=== PATIENT | male | born 1950 | race Hispanic/Latino ===

== ENCOUNTER 2022-09-01 01:47 | Inpatient (IN) | payer BC, MEDICARE ==
[2022-09-01] MEDS ORDERED: Nitroglycerin 2% Ointment 1 INCH/1 GM Packet ONE (03:04)
[2022-09-01] MEDS ORDERED: Aspirin 325 MG TAB ONE (03:04)
[2022-09-01 03:59] LABS: #Eosinphils 0.3 thou/uL (0.0-0.7); #Lymphocytes 1.9 thou/uL (1.20-3.40); #Monocytes 0.5 thou/uL (0.11-0.59); #Neutrophils 3.9 thou/uL (1.40-6.50); %Basophils 0.1 % (0.0-1.0); %Eosinophils 4.6 % (0.0-10.0); %Lymphocytes 28.4 % (21.0-51.0); %Monocytes 7.2 % (0.0-10.0); %Neutrophils 59.7 % (42.0-75.0); Hemoglobin 13.2 g/dL (14.0-18.0); Mean Corpuscular HGB CONC 31.9 g/dL (32.0-36.0); Mean Corpuscular Hemoglobin 27.8 pg (27.0-31.0); Mean Corpuscular Volume 87.3 fl (78.0-98.0); Mean Platelet Volume 8.3 fL (7.4-10.4); Platelet Count 235 thou/uL (130-400); RBC Distribution Width 12.4 % (11.5-14.5); Red Blood Cell (RBC) Count 4.73 mill/uL (4.70-6.10); White Blood Cell (WBC) Count 6.6 thou/uL (4.8-10.8)
[2022-09-01 04:00] LABS: ALT (SGPT) 58 U/L (8-55); AST (SGOT) 51 U/L (5-34); Albumin 3.9 g/dL (3.4-4.8); Alkaline Phosphatase 97 U/L (40-110); Anion Gap 17 mmol/L (10-20); BUN (Urea Nitrogen) 10 mg/dL (8.4-25.7); Bilirubin, Total 0.4 mg/dL (0.2-1.2); Calc. Creatinine Clearance 0 mL/min (70-130); Calcium 8.6 mg/dL (7.8-10.44); Carbon Dioxide 23 mmol/L (23-31); Chloride 103 mmol/L (98-107); Estimated GFR 93; Globulin 3.6 g/dL (2.4-3.5); Glucose 104 mg/dL (83-110); Potassium 4.8 mmol/L (3.5-5.1); Protein, Total 7.5 g/dL (5.8-8.1); Sodium 138 mmol/L (136-145)
[2022-09-01] MEDS ORDERED: Acetaminophen 500 MG TAB PO PRN (05:10)
[2022-09-01 06:05] LABS: SARS-CoV-2 NAA Rapid Test Not Detected (NotDetected)
[2022-09-01 06:09] LABS: Cardiac Risk 3.5 (Less than 4.5); Digoxin 0.85 ng/mL (0.8-2.0)
[2022-09-01 06:46] VITALS: BMI 38.4
[2022-09-01 07:08] LABS: Troponin I 0.013 ng/mL (< 0.028)
[2022-09-01 07:32] LABS: SARS-CoV-2 NAA Rapid Test Not Detected (NotDetected)
[2022-09-01] MEDS ORDERED: Apixaban 5 MG TAB PO SCH (09:00)
[2022-09-01] MEDS ORDERED: Apixaban 2.5 MG TAB PO SCH (09:00)
[2022-09-01 10:05] LABS: Troponin I Less than 0.010 ng/mL (< 0.028)
[2022-09-01] MEDS: Acetylcysteine 20% 200 MG/ML 30 ML VIAL INH SCH ×3 (14:04→18:49)
[2022-09-01] MEDS: guaiFENesin/DM ER PO SCH ×2 (15:10→21:08)
[2022-09-01] MEDS ORDERED: FLU VACC QS2022-23(65YR UP)/PF 240 MCG/0.7 ML SYRINGE IM ONE (15:15)
[2022-09-01] MEDS: levETIRAcetam 500 MG TAB PO SCH (21:07)
[2022-09-01] MEDS: Atorvastatin Calcium 40 MG TAB PO SCH (21:08)
[2022-09-01] MEDS: Apixaban 5 MG TAB PO SCH (21:08)
[2022-09-01] MEDS: Tamsulosin HCl 0.4 MG CAP PO SCH (21:08)
[2022-09-02] MEDS: Acetylcysteine 20% 200 MG/ML 30 ML VIAL INH SCH ×2 (00:29→07:08)
[2022-09-02 04:51] LABS: #Eosinphils 0.2 thou/uL (0.0-0.7); #Lymphocytes 1.5 thou/uL (1.20-3.40); #Monocytes 0.4 thou/uL (0.11-0.59); #Neutrophils 4.2 thou/uL (1.40-6.50); %Basophils 0.3 % (0.0-1.0); %Eosinophils 3.2 % (0.0-10.0); %Lymphocytes 23.4 % (21.0-51.0); %Monocytes 6.5 % (0.0-10.0); %Neutrophils 66.6 % (42.0-75.0); Hemoglobin 13.1 g/dL (14.0-18.0); Mean Corpuscular HGB CONC 30.7 g/dL (32.0-36.0); Mean Corpuscular Hemoglobin 26.6 pg (27.0-31.0); Mean Corpuscular Volume 86.6 fl (78.0-98.0); Platelet Count 210 thou/uL (130-400); RBC Distribution Width 12.6 % (11.5-14.5); Red Blood Cell (RBC) Count 4.92 mill/uL (4.70-6.10); White Blood Cell (WBC) Count 6.3 thou/uL (4.8-10.8)
[2022-09-02 05:08] LABS: Anion Gap 13 mmol/L (10-20); BUN (Urea Nitrogen) 10 mg/dL (8.4-25.7); Calc. Creatinine Clearance 155 mL/min (70-130); Calcium 8.9 mg/dL (7.8-10.44); Carbon Dioxide 27 mmol/L (23-31); Chloride 103 mmol/L (98-107); Estimated GFR 97; Glucose 106 mg/dL (83-110); Potassium 3.8 mmol/L (3.5-5.1); Sodium 139 mmol/L (136-145)
[2022-09-02 05:09] LABS: ALT (SGPT) 56 U/L (8-55); AST (SGOT) 37 U/L (5-34); Albumin 3.7 g/dL (3.4-4.8); Alkaline Phosphatase 91 U/L (40-110); Bilirubin, Direct 0.2 mg/dL (0.1-0.3); Bilirubin, Total 0.4 mg/dL (0.2-1.2); Protein, Total 6.9 g/dL (5.8-8.1)
[2022-09-02] MEDS: levETIRAcetam 500 MG TAB PO SCH ×2 (09:23→21:02)
[2022-09-02] MEDS: Apixaban 5 MG TAB PO SCH ×2 (09:23→21:02)
[2022-09-02] MEDS: guaiFENesin/DM ER PO SCH ×2 (09:23→21:02)
[2022-09-02] MEDS: PARoxetine 20 MG TAB PO SCH (09:23)
[2022-09-02] MEDS: Atorvastatin Calcium 40 MG TAB PO SCH (21:02)
[2022-09-02] MEDS: Tamsulosin HCl 0.4 MG CAP PO SCH (21:02)
[2022-09-03 04:45] LABS: Phosphorus 4.5 mg/dL (2.3-4.7)
[2022-09-03 04:47] LABS: #Eosinphils 0.2 thou/uL (0.0-0.7); #Lymphocytes 1.8 thou/uL (1.20-3.40); #Monocytes 0.4 thou/uL (0.11-0.59); #Neutrophils 4.5 thou/uL (1.40-6.50); %Basophils 0.1 % (0.0-1.0); %Eosinophils 3.2 % (0.0-10.0); %Lymphocytes 25.6 % (21.0-51.0); %Monocytes 6.2 % (0.0-10.0); %Neutrophils 64.9 % (42.0-75.0); ALT (SGPT) 52 U/L (8-55); AST (SGOT) 33 U/L (5-34); Albumin 3.8 g/dL (3.4-4.8); Alkaline Phosphatase 97 U/L (40-110); Anion Gap 15 mmol/L (10-20); BUN (Urea Nitrogen) 17 mg/dL (8.4-25.7); Bilirubin, Total 0.3 mg/dL (0.2-1.2); Calc. Creatinine Clearance 100 mL/min (70-130); Calcium 9.3 mg/dL (7.8-10.44); Carbon Dioxide 27 mmol/L (23-31); Chloride 102 mmol/L (98-107); Estimated GFR 94; Globulin 3.3 g/dL (2.4-3.5); Glucose 110 mg/dL (83-110); Hemoglobin 13.3 g/dL (14.0-18.0); Magnesium 1.8 mg/dL (1.6-2.6); Mean Corpuscular HGB CONC 32.6 g/dL (32.0-36.0); Mean Corpuscular Hemoglobin 28.2 pg (27.0-31.0); Mean Corpuscular Volume 86.5 fl (78.0-98.0); Platelet Count 229 thou/uL (130-400); Potassium 3.7 mmol/L (3.5-5.1); Protein, Total 7.1 g/dL (5.8-8.1); RBC Distribution Width 12.6 % (11.5-14.5); Red Blood Cell (RBC) Count 4.73 mill/uL (4.70-6.10); Sodium 140 mmol/L (136-145); White Blood Cell (WBC) Count 6.9 thou/uL (4.8-10.8)
[2022-09-03] MEDS: PARoxetine 20 MG TAB PO SCH (09:22)
[2022-09-03] MEDS: levETIRAcetam 500 MG TAB PO SCH ×2 (09:22→20:44)
[2022-09-03] MEDS: guaiFENesin/DM ER PO SCH ×2 (09:23→20:44)
[2022-09-03] MEDS: Apixaban 5 MG TAB PO SCH (09:23)
[2022-09-03] MEDS ORDERED: Iopamidol 370 76% 100 ML VIAL ONE (14:51)
[2022-09-03 16:07] LABS: INR-International Normal Ratio 1.1; Prothrombin Time 14.5 sec (12.0-14.7)
[2022-09-03] MEDS: Atorvastatin Calcium 40 MG TAB PO SCH (20:43)
[2022-09-03] MEDS: Enoxaparin Sodium 80 MG/0.8 ML SYRINGE SC SCH (20:43)
[2022-09-03] MEDS: Tamsulosin HCl 0.4 MG CAP PO SCH (20:44)
[2022-09-03] MEDS ORDERED: Warfarin Sodium 5 MG TAB PO SCH (21:00)
[2022-09-04 05:14] LABS: #Eosinphils 0.3 thou/uL (0.0-0.7); #Lymphocytes 1.8 thou/uL (1.20-3.40); #Monocytes 0.5 thou/uL (0.11-0.59); #Neutrophils 4.3 thou/uL (1.40-6.50); %Basophils 0.1 % (0.0-1.0); %Eosinophils 4.7 % (0.0-10.0); %Lymphocytes 26.2 % (21.0-51.0); %Monocytes 6.7 % (0.0-10.0); %Neutrophils 62.2 % (42.0-75.0); Hemoglobin 14.7 g/dL (14.0-18.0); Mean Corpuscular HGB CONC 32.7 g/dL (32.0-36.0); Mean Corpuscular Hemoglobin 28.6 pg (27.0-31.0); Mean Corpuscular Volume 87.3 fl (78.0-98.0); Mean Platelet Volume 8.2 fL (7.4-10.4); Platelet Count 218 thou/uL (130-400); RBC Distribution Width 12.6 % (11.5-14.5); Red Blood Cell (RBC) Count 5.14 mill/uL (4.70-6.10)
[2022-09-04 05:22] LABS: INR-International Normal Ratio 1.1; Prothrombin Time 14.5 sec (12.0-14.7)
[2022-09-04 05:42] LABS: ALT (SGPT) 51 U/L (8-55); AST (SGOT) 33 U/L (5-34); Albumin 3.8 g/dL (3.4-4.8); Alkaline Phosphatase 96 U/L (40-110); Anion Gap 12 mmol/L (10-20); BUN (Urea Nitrogen) 17 mg/dL (8.4-25.7); Bilirubin, Total 0.5 mg/dL (0.2-1.2); Calc. Creatinine Clearance 104 mL/min (70-130); Calcium 8.9 mg/dL (7.8-10.44); Carbon Dioxide 26 mmol/L (23-31); Chloride 104 mmol/L (98-107); Estimated GFR 96; Globulin 3.2 g/dL (2.4-3.5); Glucose 98 mg/dL (83-110); Potassium 3.7 mmol/L (3.5-5.1); Sodium 138 mmol/L (136-145)
[2022-09-04] MEDS: PARoxetine 20 MG TAB PO SCH (08:36)
[2022-09-04] MEDS: levETIRAcetam 500 MG TAB PO SCH ×2 (08:36→20:44)
[2022-09-04] MEDS: Enoxaparin Sodium 80 MG/0.8 ML SYRINGE SC SCH ×2 (08:37→20:43)
[2022-09-04] MEDS: guaiFENesin/DM ER PO SCH (08:37)
[2022-09-04] MEDS ORDERED: Warfarin Sodium 5 MG TAB PO SCH (17:00)
[2022-09-04] MEDS ORDERED: GUAIFENESIN SF SOLN 200 MG/10 ML UDCUP PO PRN (18:00)
[2022-09-04] MEDS ORDERED: Azithromycin 250 MG TAB PO SCH (18:45)
[2022-09-04] MEDS: cefTRIAXone\\ROCEPHIN 1 GM in Sodium Chloride 0.9% 100 ML IVPB SCH (19:04)
[2022-09-04] MEDS: Atorvastatin Calcium 40 MG TAB PO SCH (20:44)
[2022-09-04] MEDS: Benzonatate 100 MG CAP PO SCH (20:44)
[2022-09-04] MEDS: Tamsulosin HCl 0.4 MG CAP PO SCH (20:44)
[2022-09-05 04:16] LABS: #Eosinphils 0.3 thou/uL (0.0-0.7); #Lymphocytes 1.8 thou/uL (1.20-3.40); #Monocytes 0.5 thou/uL (0.11-0.59); %Basophils 0.3 % (0.0-1.0); %Eosinophils 4.5 % (0.0-10.0); %Lymphocytes 27.1 % (21.0-51.0); %Monocytes 7.3 % (0.0-10.0); %Neutrophils 60.8 % (42.0-75.0); Hemoglobin 13.6 g/dL (14.0-18.0); Mean Corpuscular HGB CONC 33.7 g/dL (32.0-36.0); Mean Corpuscular Hemoglobin 29.2 pg (27.0-31.0); Mean Corpuscular Volume 86.6 fl (78.0-98.0); Mean Platelet Volume 7.8 fL (7.4-10.4); Platelet Count 228 thou/uL (130-400); RBC Distribution Width 12.5 % (11.5-14.5); Red Blood Cell (RBC) Count 4.65 mill/uL (4.70-6.10); White Blood Cell (WBC) Count 6.5 thou/uL (4.8-10.8)
[2022-09-05 04:23] LABS: Prothrombin Time 14.1 sec (12.0-14.7)
[2022-09-05 04:42] LABS: Anion Gap 15 mmol/L (10-20); BUN (Urea Nitrogen) 20 mg/dL (8.4-25.7); Calc. Creatinine Clearance 99 mL/min (70-130); Calcium 8.8 mg/dL (7.8-10.44); Carbon Dioxide 23 mmol/L (23-31); Chloride 102 mmol/L (98-107); Estimated GFR 94; Glucose 99 mg/dL (83-110); Potassium 4.6 mmol/L (3.5-5.1); Sodium 135 mmol/L (136-145)
[2022-09-05] MEDS: Azithromycin 250 MG TAB PO SCH (09:08)
[2022-09-05] MEDS: Benzonatate 100 MG CAP PO SCH ×3 (09:09→20:56)
[2022-09-05] MEDS: levETIRAcetam 500 MG TAB PO SCH ×2 (09:09→20:57)
[2022-09-05] MEDS: PARoxetine 20 MG TAB PO SCH (09:09)
[2022-09-05] MEDS: Enoxaparin Sodium 80 MG/0.8 ML SYRINGE SC SCH ×2 (09:10→20:56)
[2022-09-05] MEDS: Warfarin Sodium 5 MG TAB PO SCH (18:07)
[2022-09-05] MEDS: cefTRIAXone\\ROCEPHIN 1 GM in Sodium Chloride 0.9% 100 ML IVPB SCH (18:07)
[2022-09-05] MEDS: Atorvastatin Calcium 40 MG TAB PO SCH (20:56)
[2022-09-05] MEDS: Tamsulosin HCl 0.4 MG CAP PO SCH (20:58)
[2022-09-06 04:41] LABS: INR-International Normal Ratio 1.1; Prothrombin Time 14.5 sec (12.0-14.7)
[2022-09-06 05:27] LABS: Eosinophils 5 % (0-10); Hemoglobin 13.9 g/dL (14.0-18.0); Lymphocytes 27 % (21-51); MDiff Complete? YES; Mean Corpuscular HGB CONC 32.4 g/dL (32.0-36.0); Mean Corpuscular Hemoglobin 28.4 pg (27.0-31.0); Mean Corpuscular Volume 87.6 fl (78.0-98.0); Mean Platelet Volume 8.2 fL (7.4-10.4); Monocytes 9 % (0-10); Neutrophil 58 % (42-75); Platelet Count 173 thou/uL (130-400); RBC Distribution Width 12.6 % (11.5-14.5); Red Blood Cell (RBC) Count 4.91 mill/uL (4.70-6.10); White Blood Cell (WBC) Count 5.5 thou/uL (4.8-10.8)
[2022-09-06 07:25] LABS: Anion Gap 10 mmol/L (10-20); BUN (Urea Nitrogen) 16 mg/dL (8.4-25.7); Calc. Creatinine Clearance 103 mL/min (70-130); Carbon Dioxide 30 mmol/L (23-31); Chloride 103 mmol/L (98-107); Estimated GFR 95; Glucose 92 mg/dL (83-110); Potassium 3.8 mmol/L (3.5-5.1); Sodium 139 mmol/L (136-145)
[2022-09-06] MEDS: Azithromycin 250 MG TAB PO SCH (09:42)
[2022-09-06] MEDS: Benzonatate 100 MG CAP PO SCH ×3 (09:42→22:15)
[2022-09-06] MEDS: PARoxetine 20 MG TAB PO SCH (09:42)
[2022-09-06] MEDS: levETIRAcetam 500 MG TAB PO SCH ×2 (09:43→22:16)
[2022-09-06] MEDS: Enoxaparin Sodium 80 MG/0.8 ML SYRINGE SC SCH ×2 (09:43→22:16)
[2022-09-06] MEDS ORDERED: Warfarin Sodium 5 MG TAB PO SCH (17:00)
[2022-09-06] MEDS: Warfarin Sodium 5 MG TAB PO SCH (18:27)
[2022-09-06] MEDS: cefTRIAXone\\ROCEPHIN 1 GM in Sodium Chloride 0.9% 100 ML IVPB SCH (18:28)
[2022-09-06] MEDS: Atorvastatin Calcium 40 MG TAB PO SCH (22:15)
[2022-09-06] MEDS: Tamsulosin HCl 0.4 MG CAP PO SCH (22:16)
[2022-09-07 04:52] LABS: INR-International Normal Ratio 1.3; Prothrombin Time 16.7 sec (12.0-14.7)
[2022-09-07] MEDS: Azithromycin 250 MG TAB PO SCH (09:03)
[2022-09-07] MEDS: Benzonatate 100 MG CAP PO SCH ×3 (09:03→20:39)
[2022-09-07] MEDS: levETIRAcetam 500 MG TAB PO SCH ×2 (09:03→20:40)
[2022-09-07] MEDS: PARoxetine 20 MG TAB PO SCH (09:03)
[2022-09-07] MEDS: Enoxaparin Sodium 80 MG/0.8 ML SYRINGE SC SCH ×2 (09:04→20:39)
[2022-09-07] MEDS: Warfarin Sodium 5 MG TAB PO SCH (18:56)
[2022-09-07] MEDS: cefTRIAXone\\ROCEPHIN 1 GM in Sodium Chloride 0.9% 100 ML IVPB SCH (18:59)
[2022-09-07] MEDS: Atorvastatin Calcium 40 MG TAB PO SCH (20:39)
[2022-09-07] MEDS: Tamsulosin HCl 0.4 MG CAP PO SCH (20:40)
[2022-09-08 04:55] LABS: INR-International Normal Ratio 1.4; Prothrombin Time 17.8 sec (12.0-14.7)
[2022-09-08] MEDS: Azithromycin 250 MG TAB PO SCH (08:48)
[2022-09-08] MEDS: Benzonatate 100 MG CAP PO SCH ×3 (08:48→20:25)
[2022-09-08] MEDS: PARoxetine 20 MG TAB PO SCH (08:48)
[2022-09-08] MEDS: levETIRAcetam 500 MG TAB PO SCH ×2 (08:48→20:25)
[2022-09-08] MEDS: Enoxaparin Sodium 80 MG/0.8 ML SYRINGE SC SCH ×2 (08:49→20:25)
[2022-09-08] MEDS: Warfarin Sodium 5 MG TAB PO SCH (16:12)
[2022-09-08] MEDS: cefTRIAXone\\ROCEPHIN 1 GM in Sodium Chloride 0.9% 100 ML IVPB SCH (17:45)
[2022-09-08] MEDS: Atorvastatin Calcium 40 MG TAB PO SCH (20:25)
[2022-09-08] MEDS: Tamsulosin HCl 0.4 MG CAP PO SCH (20:25)
[2022-09-09 04:45] LABS: INR-International Normal Ratio 1.9; Prothrombin Time 22.4 sec (12.0-14.7)
[2022-09-09] MEDS: levETIRAcetam 500 MG TAB PO SCH ×2 (09:18→21:57)
[2022-09-09] MEDS: Azithromycin 250 MG TAB PO SCH (09:18)
[2022-09-09] MEDS: PARoxetine 20 MG TAB PO SCH (09:18)
[2022-09-09] MEDS: Benzonatate 100 MG CAP PO SCH ×3 (09:18→21:56)
[2022-09-09] MEDS: Enoxaparin Sodium 80 MG/0.8 ML SYRINGE SC SCH ×2 (09:19→21:57)
[2022-09-09] MEDS: Warfarin Sodium 5 MG TAB PO SCH (16:37)
[2022-09-09] MEDS: cefTRIAXone\\ROCEPHIN 1 GM in Sodium Chloride 0.9% 100 ML IVPB SCH (17:47)
[2022-09-09] MEDS: Atorvastatin Calcium 40 MG TAB PO SCH (21:56)
[2022-09-09] MEDS: Tamsulosin HCl 0.4 MG CAP PO SCH (21:56)
[2022-09-10 04:49] LABS: Hemoglobin 12.9 g/dL (14.0-18.0); Platelet Count 200 thou/uL (130-400)
[2022-09-10 05:02] LABS: INR-International Normal Ratio 2.2; Prothrombin Time 25.6 sec (12.0-14.7)
[2022-09-10] MEDS: PARoxetine 20 MG TAB PO SCH (09:26)
[2022-09-10] MEDS: Enoxaparin Sodium 80 MG/0.8 ML SYRINGE SC SCH (09:26)
[2022-09-10] MEDS: levETIRAcetam 500 MG TAB PO SCH (09:26)
[2022-09-10] MEDS: Benzonatate 100 MG CAP PO SCH (09:26)
[2022-09-11 02:37] VITALS: BP 119/70; TEMP 97.2
== END 2022-09-10 13:34 | disposition home or self-care (01) | DRG 176 ==
LOC: ERS 01:47 → ERHOLD 04:45 → 2NO 14:03 → OBSVTOIN 09-03 17:35
PROVIDERS: ADMIT Internal Medicine; ATTEND Hospitalist
DX: I26.99 Other pulmonary embolism without acute cor pulmonale (principal); I69.351 Hemiplegia and hemiparesis following cerebral infarction affecting right dominant side; I48.21 Permanent atrial fibrillation; G40.909 Epilepsy, unspecified, not intractable, without status epilepticus; I25.10 Atherosclerotic heart disease of native coronary artery without angina pectoris; R47.9 Unspecified speech disturbances; Z20.822 Contact with and (suspected) exposure to COVID-19; R00.1 Bradycardia, unspecified; Z79.01 Long term (current) use of anticoagulants; Z87.01 Personal history of pneumonia (recurrent); Z79.899 Other long term (current) drug therapy; Z82.49 Family history of ischemic heart disease and other diseases of the circulatory system; J20.9 Acute bronchitis, unspecified; T46.1X5A Adverse effect of calcium-channel blockers, initial encounter; F32.A Depression, unspecified; E78.5 Hyperlipidemia, unspecified; I11.9 Hypertensive heart disease without heart failure
CPT/HCPCS: 36415; 36416; 71045; 71275; 80048; 80053; 80061; 80076; 80162; 83735; 83880; 84100; 84145; 84484; 85014; 85018; 85025; 85049; 85610; 87811; 93005; 93010; 93306; 94640; G0378; J0132; J0696; J1650; J3490; J7620; Q9967; U0002

== ENCOUNTER 2023-09-17 15:34 | Outpatient (CLI) | payer MEDICARE, BC | END 2023-09-17 15:35 | disposition home or self-care (01) | LOC: SJX 15:34 | PROVIDERS: ATTEND Nurse Practitioner Family | DX: R05.1 Acute cough (principal); R06.2 Wheezing | CPT/HCPCS: 71046 ==